=== PATIENT | female | born 1960 | race Caucasian/White ===

== ENCOUNTER 2019-03-25 12:31 | Inpatient (IN) | payer OTHER ==
[2019-03-25 16:01] VITALS: BMI 43.0
--- NOTE | 2019-03-25 16:40 | HP ---
CIWA Score Nausea/Vomitin Muscle Tremors: 3 Anxiety: 2 Agitation: 2 Paroxysmal Sweats: 3 Orientation: 1-Uncertain about Date Tacttile Disturbances: 0-None Auditory Disturbances: 0-None Visual Disturbances: 1-Very Mild Sensitivity Headache: 4-Moderately Severe CIWA-Ar Total Score: 19 - Admission Criteria OASAS Guidelines: Admission for Medically Managed Detox: Requires at least one of the followin. CIWA greater than 12 2. Seizures within the past 24 hours 3. Delirium tremens within the past 24 hours 4. Hallucinations within the past 24 hours 5. Acute intervention needed for co occurring medical disorder 6. Acute intervention needed for co occurring psychiatric disorder 7. Severe withdrawal that cannot be handled at a lower level of care (continued vomiting, continued diarrhea, abnormal vital signs) requiring intravenous medication and/or fluids 8. Patient presents the following: CIWA greater than 12 Admission Criteria Met: Admission criteria met Admission ROS [facility] Chief Complaint: Julieth Simms is a 59 year old female presenting for alcohol and opiate abuse. Allergies/Adverse Reactions: Allergies Allergy/AdvReac Type Severity Reaction Status Date / Time No Known Allergies Allergy Verified 03/25/19 15:48 History of Present Illness: Julieth Simms is a 59 year old female presenting for alcohol and opiate abuse. Alcohol: variable. 1L of hard alcohol or 4 40oz beers. Last drink was today, but minimal. Last large amount of drinking was yesterday. Has been drinking for last 10 days. Prior to that was clean for 2 years. Prior to her sobriety she had variable drinking states over the years. First drink was in her teens. Denies history of seizures. Has had blackout, falls, and head hits. Withdrawal symptoms: nausea, vomiting, tremors, headaches, diarrhea, dizziness. Was recently in intermediate for extended period of time (almost 2 years) due to inability to walk and dangerous living home environment. Had recent planned suicide attempt where she planned to take pills, but called 911 to pick her up. Opiate pills: was prescribed opiates at nursing facility for her degenerative disc disease pain. Was taking scheduled and prn medications at the intermediate. Since exiting the intermediate 10 days had not gotten any opiate pain medications at home until presenting to [facility] where she was given one dose of Percocet. Stated she never before used opiates until before the intermediate. Was given Ativan at [facility]. Referred from [facility]. Has been to detox previously. Most recent detox 5 years prior. Has been to rehab previously, most recently 5 years. Plans after detox: wants to go to rehab. Medical History: degenerative disc disease, scoliosis, spondylosis, GERD Psychiatric History: MDD, bipolar Surgical History: L total hip replacement, L knee surgery Smoking: denies Social: apartment, lives alone. Unemployed. On disability. Has a guardian in a self-help and advocacy agency. Guardian Fredis Canales [employer]OUND[employer] CHAIRMAN AND CHIE[employer] CREATIVE OFFICER Reference: #[id number] Multiple Rx dispensed for Xtampza ER 9mg, pregabalin 100mg, oxycodone 10mg within the last year. Will be admitted for alcohol detox with Librium. Exam Limitations: No Limitations - Ebola screening Have you traveled outside of the country in the last 21 days: No Have you had contact with anyone from an Ebola affected area: No Do you have a fever: No - Review of Systems Constitutional: Chills, Loss of Appetite, Changes in sleep EENT: reports: No Symptoms Reported Respiratory: reports: No Symptoms reported Cardiac: reports: Palpitations GI: reports: Diarrhea, Nausea, Poor Appetite, Vomiting : reports: No Symptoms Reported Musculoskeletal: reports: Back Pain Integumentary: reports: No Symptoms Reported Neuro: reports: Headache Endocrine: reports: No Symptoms Reported Hematology: reports: No Symptoms Reported Psychiatric: reports: Anxious, Depressed Patient History - Patient Medical History Hx Anemia: No Hx Asthma: No Hx Chronic Obstructive Pulmonary Disease (COPD): No Hx Cancer: No Hx Cardiac Disorders: No Hx Congestive Heart Failure: No Hx Hypertension: No Hx Hypercholesterolemia: No Hx Pacemaker: No HX Cerebrovascular Accident: No Hx Seizures: No Hx Dementia: No Hx Diabetes: No Hx Gastrointestinal Disorders: Yes (GERD) Hx Liver Disease: No Hx Genitourinary Disorders: No Hx Sexually Transmitted Disorders: No Hx Renal Disease (ESRD): No Hx Thyroid Disease: No Hx Human Immunodeficiency Virus (HIV): No Hx Hepatitis C: No Hx Depression: Yes Hx Suicide Attempt: Yes (recent) Hx Bipolar Disorder: Yes Hx Schizophrenia: No Other Medical History: degenerative disc disease - Patient Surgical History Hx Neurologic Surgery: No Hx Cataract Extraction: No Hx Cardiac Surgery: No Hx Lung Surgery: No Hx Breast Surgery: No Hx Breast Biopsy: No Hx Abdominal Surgery: No Hx Appendectomy: No Hx Cholecystectomy: No Hx Genitourinary Surgery: No Hx Section: No Hx Orthopedic Surgery: Yes (L hip replacement) - PPD History Previous Implant?: No PPD to be Administered?: Yes - Reproductive History Patient is a Female of Child Bearing Age (11 -55 yrs old): No Patient : No - Smoking Cessation Smoking history: Never smoked - Substance & Tx. History Hx Alcohol Use: Yes Hx Substance Use: Yes Substance Use Type: Alcohol, Opiates - Substances abused Oxycontin Substance route: Oral Frequency: Daily Amount used: 5mg 2x daily Age of first use: 57 Date of last use: 03/16/19 Alcohol Substance route: Oral Frequency: Daily Amount used: 1 liter of vodka Age of first use: 20 Date of last use: 03/24/19 Admission Physical Exam BHS - Vital Signs Vital Signs: Vital Signs - 24 hr 03/25/19 15:48 Temperature 98.6 F Pulse Rate 99 H Respiratory 19 Rate Blood Pressure 153/95 - Physical General Appearance: Yes: Appropriately Dressed, Moderate Distress HEENTM: Yes: EOMI, Normocephalic, Normal Voice, HANNA, Pharynx Normal Respiratory: Yes: Chest Non-Tender, Lungs Clear, Normal Breath Sounds, No Respiratory Distress, No Accessory Muscle Use Neck: Yes: No masses,lesions,Nodules, Trachea in good position Breast: Yes: Breast Exam Deferred Cardiology: Yes: Regular Rhythm, Regular Rate, S1, S2 Abdominal: Yes: Normal Bowel Sounds, Non Tender, Soft, Other (obese abdomen) Genitourinary: Yes: Within Normal Limits Back: Yes: Normal Inspection Musculoskeletal: Yes: Back pain (lower back), Other (post-surgical scar on L hip , hematoma s/p venipuncture on R hand) Extremities: Yes: Normal Capillary Refill, Normal Range of Motion, Non-Tender, Tremors, Pedal Edema (trace edema) Neurological: Yes: production service manager II-XII NML intact, Alert, Motor Strength 5/5 Integumentary: Yes: Normal Color, Dry, Other (cool extremities) - Diagnostic (1) Alcohol abuse Current Visit: Yes Status: Acute (2) GERD (gastroesophageal reflux disease) Current Visit: Yes Status: Acute (3) Spondylosis Current Visit: Yes Status: Acute (4) Degenerative disc disease Current Visit: Yes Status: Acute (5) History of left hip replacement Current Visit: Yes Status: Acute (6) MDD (major depressive disorder) Current Visit: Yes Status: Acute (7) Bipolar disorder Current Visit: Yes Status: Acute (8) Opiate abuse, episodic Current Visit: Yes Status: Acute Cleared for Admission S - Detox or Rehab [facility] Level of Care: Medically Managed Detox Regimen/Protocol: Librium Breathalyzer - Breathalyzer Breathalyzer: 0 Urine Drug Screen - Test Device Lot number: [id number] Expiration date: 11/13/20 - Control Is test valid?: Yes - Results Drug screen NEGATIVE: Yes Urine drug screen results: OXY-Oxycodone, BZO-Benzodiazepines Inpatient Rehab Admission - Rehab Decision to Admit Inpatient rehab admission?: No
[2019-03-25] MEDS ORDERED: IBUPROFEN 400 MG TABLET (FP) PO PRN (17:24)
[2019-03-25] MEDS ORDERED: ACETAMINOPHEN 325 MG TABLET (FP) PO PRN (17:24)
[2019-03-25] MEDS ORDERED: MENTHOL/PHENOL 1 EACH UD MM PRN (17:24)
[2019-03-25] MEDS ORDERED: MAGNESIUM CITRATE 300 ML BOTTLE PO PRN (17:24)
[2019-03-25] MEDS ORDERED: MAG HYDROX/AL HYDROX/SIMETH 30 ML UNIT-DOSE CUP PO PRN (17:24)
[2019-03-25] MEDS ORDERED: MAGNESIUM HYDROX 2400MG/30ML ORAL SUSPENSION 30 ML CUP PO PRN (17:24)
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
[2019-03-25] MEDS: chlordiazePOXIDE HCL 25 MG CAPSULE PO PRN (19:29)
[2019-03-25] MEDS: hydrOXYzine PAMOATE 25 MG CAPSULE (FP) PO PRN (19:33)
[2019-03-25] MEDS: METHOCARBAMOL 500 MG TABLET PO PRN (19:33)
[2019-03-25] MEDS: chlordiazePOXIDE HCL 25 MG CAPSULE PO SCH (22:22)
[2019-03-25] MEDS: MELATONIN 5 MG TABLETS PO PRN (22:23)
[2019-03-25] MEDS: THIAMINE HCL 100 MG TABLET (FP) PO SCH (22:23)
[2019-03-26] MEDS: chlordiazePOXIDE HCL 25 MG CAPSULE PO PRN ×2 (01:34→15:11)
[2019-03-26] MEDS: ACETAMINOPHEN 325 MG TABLET (FP) PO PRN ×2 (01:35→15:13)
[2019-03-26] MEDS: chlordiazePOXIDE HCL 25 MG CAPSULE PO SCH ×4 (05:35→22:04)
[2019-03-26] MEDS: hydrOXYzine PAMOATE 25 MG CAPSULE (FP) PO PRN (05:35)
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
[2019-03-26] MEDS ORDERED: IBUPROFEN 400 MG TABLET (FP) PO PRN (08:32)
[2019-03-26] MEDS: PANTOPRAZOLE 20 MG TABLET (FP) PO SCH (09:16)
[2019-03-26] MEDS: PRENATAL VITAMINS W/ FOLIC ACID TABLET (FP) PO SCH (09:16)
[2019-03-26] MEDS: METHOCARBAMOL 500 MG TABLET PO PRN ×2 (09:16→16:53)
[2019-03-26] MEDS: LIDOCAINE 5% TOPICAL PATCH TP SCH (11:24)
[2019-03-26] MEDS: hydrOXYzine PAMOATE 50 MG CAPSULE (FP) PO PRN ×2 (11:36→18:52)
[2019-03-26] MEDS ORDERED: COLLOIDAL OATMEAL 1 BAR EACH TP ONE (13:50)
--- NOTE | 2019-03-26 13:53 | PN ---
S CIWA - CIWA Score Nausea/Vomitin-No Nausea/No Vomiting Muscle Tremors: 3 Anxiety: 3 Agitation: 4-Moderately Restless Paroxysmal Sweats: 3 Orientation: 0-Oriented Tacttile Disturbances: 0-None Auditory Disturbances: 0-None Visual Disturbances: 0-None Headache: 0-None Present CIWA-Ar Total Score: 13 B[facility] Progress Note (SOAP) Subjective: sweats anxiety body aches interrupted sleep rash to my buttock area Objective: 03/26/19 13:52 Vital Signs Temperature 98.2 F 03/26/19 13:29 Pulse Rate 96 H 03/26/19 13:29 Respiratory Rate 18 03/26/19 13:29 Blood Pressure 145/81 03/26/19 13:29 O2 Sat by Pulse Oximetry (%) labs pending aaox3 ambulating no acute distress Assessment: 03/26/19 13:52 withdrawal sx Plan: continue detox increase fluids nystatin cream ordered aveeno soap lidocaine patch motrin 800mg tid prn
[2019-03-26] MEDS: BISMUTH SUBSALICYLATE 524 MG/30 ML UD PO PRN ×2 (15:12→16:56)
[2019-03-26] MEDS: NYSTATIN 100,000 UNIT/GM TOPICAL CREAM 15 GM TUBE TP SCH (19:35)
[2019-03-26] MEDS: IBUPROFEN 400 MG TABLET (FP) PO PRN ×2 (20:27→22:04)
[2019-03-26] MEDS: traZODone HCL 100 MG TABLET (FP) PO SCH (22:04)
[2019-03-26] MEDS: THIAMINE HCL 100 MG TABLET (FP) PO SCH (22:05)
[2019-03-26] MEDS: MELATONIN 5 MG TABLETS PO PRN (22:06)
[2019-03-26] MEDS: LIDOCAINE PATCH REMOVAL MC SCH (22:08)
[2019-03-27] MEDS: NYSTATIN 100,000 UNIT/GM TOPICAL CREAM 15 GM TUBE TP SCH ×5 (00:05→17:52)
[2019-03-27] MEDS: chlordiazePOXIDE HCL 25 MG CAPSULE PO SCH ×4 (05:43→22:05)
[2019-03-27] MEDS: METHOCARBAMOL 500 MG TABLET PO PRN ×3 (05:45→22:08)
[2019-03-27] MEDS: IBUPROFEN 400 MG TABLET (FP) PO PRN ×2 (05:45→13:42)
[2019-03-27] MEDS: hydrOXYzine PAMOATE 50 MG CAPSULE (FP) PO PRN ×2 (05:45→10:09)
[2019-03-27] MEDS: ACETAMINOPHEN 325 MG TABLET (FP) PO PRN ×2 (09:20→15:20)
[2019-03-27] MEDS ORDERED: cloNIDine HCL 0.1 MG TABLET PO SCH (10:00)
[2019-03-27] MEDS: PRENATAL VITAMINS W/ FOLIC ACID TABLET (FP) PO SCH (10:06)
[2019-03-27] MEDS: LIDOCAINE 5% TOPICAL PATCH TP SCH (10:06)
[2019-03-27] MEDS: PANTOPRAZOLE 20 MG TABLET (FP) PO SCH (10:06)
--- NOTE | 2019-03-27 13:32 | PN ---
[facility] CIWA - CIWA Score Nausea/Vomitin-No Nausea/No Vomiting Muscle Tremors: 3 Anxiety: 3 Agitation: 4-Moderately Restless Paroxysmal Sweats: 3 Orientation: 0-Oriented Tacttile Disturbances: 0-None Auditory Disturbances: 0-None Visual Disturbances: 0-None Headache: 0-None Present CIWA-Ar Total Score: 13 BHS Progress Note (SOAP) Subjective: agitation sweats the meals I receive are too high in sugars. I am try to lose weight body aches Objective: 03/27/19 13:32 Vital Signs Temperature 98.8 F 03/27/19 09:28 Pulse Rate 94 H 03/27/19 09:28 Respiratory Rate 18 03/27/19 09:28 Blood Pressure 160/81 03/27/19 09:28 O2 Sat by Pulse Oximetry (%) re-ordered labs aaox3 ambulating no acute distress Assessment: 03/27/19 13:33 withdrawal sx Plan: continue detox d/c reg diet; ordered a low sodium and low sugar diet; pt in agreement clonidine 0.1mg daily with parameters.
[2019-03-27] MEDS: chlordiazePOXIDE HCL 25 MG CAPSULE PO PRN (13:46)
[2019-03-27] MEDS: traZODone HCL 100 MG TABLET (FP) PO SCH (22:05)
[2019-03-27] MEDS: THIAMINE HCL 100 MG TABLET (FP) PO SCH (22:05)
[2019-03-27] MEDS: MELATONIN 5 MG TABLETS PO PRN (22:06)
[2019-03-27] MEDS: LIDOCAINE PATCH REMOVAL MC SCH (22:06)
[2019-03-28] MEDS: NYSTATIN 100,000 UNIT/GM TOPICAL CREAM 15 GM TUBE TP SCH ×4 (00:19→18:37)
[2019-03-28] MEDS: hydrOXYzine PAMOATE 50 MG CAPSULE (FP) PO PRN ×3 (00:40→16:04)
[2019-03-28] MEDS: IBUPROFEN 400 MG TABLET (FP) PO PRN ×3 (00:40→17:53)
[2019-03-28] MEDS: chlordiazePOXIDE HCL 10 MG CAPSULE PO SCH ×4 (05:56→22:00)
[2019-03-28] MEDS: METHOCARBAMOL 500 MG TABLET PO PRN ×3 (06:01→17:52)
[2019-03-28] MEDS: ACETAMINOPHEN 325 MG TABLET (FP) PO PRN ×3 (06:01→22:03)
[2019-03-28] MEDS: LIDOCAINE 5% TOPICAL PATCH TP SCH (10:08)
[2019-03-28] MEDS: PRENATAL VITAMINS W/ FOLIC ACID TABLET (FP) PO SCH (10:08)
[2019-03-28] MEDS: cloNIDine HCL 0.1 MG TABLET PO SCH (10:08)
[2019-03-28] MEDS: PANTOPRAZOLE 20 MG TABLET (FP) PO SCH (10:08)
[2019-03-28 10:23] LABS: BASO % 0.3 % (0-2.0); HEMOGLOBIN 13.6 GM/dL (10.7-15.3); LYMPH % 39.9 % (8-40); MCH 31.7 pg (25.7-33.7); MCHC 34.1 g/dl (32.0-36.0); MEAN CELL VOLUME 93.1 fl (80-96); MEAN PLT VOLUME 9.6 fl (7.5-11.1); MONO % 6.2 % (3.8-10.2); NEUT % 51.6 % (42.8-82.8); PLATELET COUNT 120 K/MM3 (134-434); RBC 4.29 M/mm3 (3.60-5.2); RDW 13.2 % (11.6-15.6); WHITE BLOOD COUNT 6.8 K/mm3 (4.0-10.0)
[2019-03-28 10:30] LABS: ALBUMIN 3.4 g/dl (3.4-5.0); BILIRUBIN,TOTAL 0.6 mg/dL (0.2-1); CALCIUM 8.7 mg/dL (8.5-10.1); POTASSIUM 4.1 mmol/L (3.5-5.1); TOT PROT 6.5 g/dl (6.4-8.2)
[2019-03-28] MEDS: chlordiazePOXIDE HCL 10 MG CAPSULE PO PRN ×2 (12:02→19:01)
--- NOTE | 2019-03-28 16:53 | PN ---
[facility] CIWA - CIWA Score Nausea/Vomitin-No Nausea/No Vomiting Muscle Tremors: 2 Anxiety: 4-Mod. Anxious/Guarded Agitation: 2 Paroxysmal Sweats: 3 Orientation: 0-Oriented Tacttile Disturbances: 0-None Auditory Disturbances: 0-None Visual Disturbances: 0-None Headache: 0-None Present CIWA-Ar Total Score: 11 S Progress Note (SOAP) Subjective: Sweating, Anxiety and Chronic generalized pain (patient stated that she has been on oxycodone and oxycontin for past 2 years and is not getting it here and needs her pain to be controlled). Patient willing to take prn medication to help control her anxiety and pain. Objective: 03/28/19 16:53 Last Vital Signs Temp Pulse Resp BP Pulse Ox 97.0 F L 66 18 129/76 03/28/19 13:27 03/28/19 13:27 03/28/19 13:27 03/28/19 13:27 Laboratory Tests 03/28/19 03/28/19 03/28/19 07:15 07:15 07:15 WBC 6.8 RBC 4.29 Hgb 13.6 Hct 40.0 MCV 93.1 MCH 31.7 MCHC 34.1 RDW 13.2 Plt Count 120 L MPV 9.6 Absolute Neuts (auto) 3.5 Neutrophils % 51.6 Lymphocytes % 39.9 Monocytes % 6.2 Eosinophils % 2.0 Basophils % 0.3 Nucleated RBC % 0 Sodium 141 Potassium 4.1 Chloride 110 H Carbon Dioxide 23 Anion Gap 8 BUN 21.0 H Creatinine 1.0 Est GFR (CKD-EPI)AfAm 72.42 Est GFR (CKD-EPI)NonAf 62.49 Random Glucose 145 H Calcium 8.7 Total Bilirubin 0.6 AST 12 L ALT 28 Alkaline Phosphatase 82 Total Protein 6.5 Albumin 3.4 RPR Titer Nonreactive Labs reviewed: plt 120 (low), bun 21 (high), glucose 145 (high) Assessment: 03/28/19 16:56 Withdrawal sxs Noted with thrombocytopenia, azotemia and hyperglycemia Plan: Continue detox Encouraged PO water intake Thrombocytopenia: most likely due to substance use, educated on avoiding Rx opioids and all illicit drugs/alcohol due to health related risks, follow up with PCP for monitoring Azotemia: encouraged PO water intake Hyperglycemia: denies dm, repeat fasting glucose and HbA1c
[2019-03-28] MEDS: THIAMINE HCL 100 MG TABLET (FP) PO SCH (21:59)
[2019-03-28] MEDS: traZODone HCL 100 MG TABLET (FP) PO SCH (22:00)
[2019-03-28] MEDS: LIDOCAINE PATCH REMOVAL MC SCH (22:00)
[2019-03-29] MEDS: NYSTATIN 100,000 UNIT/GM TOPICAL CREAM 15 GM TUBE TP SCH ×4 (00:19→22:10)
[2019-03-29] MEDS: hydrOXYzine PAMOATE 50 MG CAPSULE (FP) PO PRN ×5 (00:59→22:09)
[2019-03-29] MEDS: IBUPROFEN 400 MG TABLET (FP) PO PRN ×2 (03:19→10:12)
[2019-03-29] MEDS: METHOCARBAMOL 500 MG TABLET PO PRN ×3 (03:49→19:20)
[2019-03-29] MEDS: chlordiazePOXIDE HCL 10 MG CAPSULE PO SCH ×2 (05:42→17:25)
[2019-03-29] MEDS: ACETAMINOPHEN 325 MG TABLET (FP) PO PRN ×3 (05:43→22:10)
[2019-03-29] MEDS: PRENATAL VITAMINS W/ FOLIC ACID TABLET (FP) PO SCH (10:08)
[2019-03-29] MEDS: cloNIDine HCL 0.1 MG TABLET PO SCH (10:08)
[2019-03-29] MEDS: LIDOCAINE 5% TOPICAL PATCH TP SCH (10:08)
[2019-03-29] MEDS: PANTOPRAZOLE 20 MG TABLET (FP) PO SCH (10:08)
[2019-03-29] MEDS: chlordiazePOXIDE HCL 25 MG CAPSULE PO PRN ×2 (10:13→19:20)
--- NOTE | 2019-03-29 13:59 | PN ---
S CIWA - CIWA Score Nausea/Vomitin-No Nausea/No Vomiting Muscle Tremors: 3 Anxiety: 2 Agitation: 3 Paroxysmal Sweats: No Perspiration Orientation: 0-Oriented Tacttile Disturbances: 0-None Auditory Disturbances: 0-None Visual Disturbances: 0-None Headache: 0-None Present CIWA-Ar Total Score: 8 BHS Progress Note (SOAP) Subjective: chronic back pain anxiety sweats Objective: 03/29/19 13:58 Vital Signs Temperature 98.4 F 03/29/19 13:10 Pulse Rate 71 03/29/19 13:10 Respiratory Rate 18 03/29/19 13:10 Blood Pressure 119/65 03/29/19 13:10 O2 Sat by Pulse Oximetry (%) aaox3 ambulating with walker no acute distress Assessment: 03/29/19 13:58 withdrawals sx Plan: continue detox increase fluids motrin 600mg q6hr prn roboxin 500 q6hrs lidocaine patch librium 25mg prn x 1 day. d/c in am
[2019-03-29] MEDS: IBUPROFEN 600 MG TABLET (FP) PO PRN (17:25)
[2019-03-29] MEDS: THIAMINE HCL 100 MG TABLET (FP) PO SCH (22:09)
[2019-03-29] MEDS: traZODone HCL 100 MG TABLET (FP) PO SCH (22:09)
[2019-03-30] MEDS: LIDOCAINE PATCH REMOVAL MC SCH (00:11)
[2019-03-30] MEDS: METHOCARBAMOL 500 MG TABLET PO PRN ×2 (04:48→10:16)
[2019-03-30] MEDS: IBUPROFEN 600 MG TABLET (FP) PO PRN ×2 (04:48→10:16)
[2019-03-30] MEDS: hydrOXYzine PAMOATE 50 MG CAPSULE (FP) PO PRN (04:48)
[2019-03-30] MEDS ORDERED: chlordiazePOXIDE HCL 10 MG CAPSULE PO ONE (05:00)
[2019-03-30] MEDS: NYSTATIN 100,000 UNIT/GM TOPICAL CREAM 15 GM TUBE TP SCH ×3 (06:34→11:20)
--- NOTE | 2019-03-30 09:34 | DS ---
[facility] Detox Discharge Summary Admission Date: 03/25/19 Discharge Date: 03/30/19 - History Present History: Alcohol Dependence - Physical Exam Results Vital Signs: Vital Signs Temperature 97.9 F 03/30/19 09:27 Pulse Rate 70 03/30/19 09:27 Respiratory Rate 18 03/30/19 09:27 Blood Pressure 127/76 03/30/19 09:27 O2 Sat by Pulse Oximetry (%) Pertinent Admission Physical Exam Findings: pt arrived in withdrawals Vital Signs Temperature 97.9 F 03/30/19 09:27 Pulse Rate 70 03/30/19 09:27 Respiratory Rate 18 03/30/19 09:27 Blood Pressure 127/76 03/30/19 09:27 O2 Sat by Pulse Oximetry (%) Laboratory Tests 03/28/19 03/28/19 03/28/19 07:15 07:15 07:15 WBC 6.8 RBC 4.29 Hgb 13.6 Hct 40.0 MCV 93.1 MCH 31.7 MCHC 34.1 RDW 13.2 Plt Count 120 L MPV 9.6 Absolute Neuts (auto) 3.5 Neutrophils % 51.6 Lymphocytes % 39.9 Monocytes % 6.2 Eosinophils % 2.0 Basophils % 0.3 Nucleated RBC % 0 Sodium 141 Potassium 4.1 Chloride 110 H Carbon Dioxide 23 Anion Gap 8 BUN 21.0 H Creatinine 1.0 Est GFR (CKD-EPI)AfAm 72.42 Est GFR (CKD-EPI)NonAf 62.49 Random Glucose 145 H Fasting Glucose Hemoglobin A1c % Calcium 8.7 Total Bilirubin 0.6 AST 12 L ALT 28 Alkaline Phosphatase 82 Total Protein 6.5 Albumin 3.4 RPR Titer Nonreactive 03/29/19 03/29/19 08:00 08:00 WBC RBC Hgb Hct MCV MCH MCHC RDW Plt Count MPV Absolute Neuts (auto) Neutrophils % Lymphocytes % Monocytes % Eosinophils % Basophils % Nucleated RBC % Sodium Potassium Chloride Carbon Dioxide Anion Gap BUN Creatinine Est GFR (CKD-EPI)AfAm Est GFR (CKD-EPI)NonAf Random Glucose Fasting Glucose 117 H Hemoglobin A1c % 5.5 Calcium Total Bilirubin AST ALT Alkaline Phosphatase Total Protein Albumin RPR Titer pt is aaox3 ambulating no acute distress no s/s of withdrawals - Treatment Hospital Course: Detox Protocol Followed, Detoxed Safely, Responded well, Discharged Condition Good, Rehab Referral Accepted Patient has Accepted a Rehab Referral to: referral to inpatient rehab - Medication Discharge Medications: Ambulatory Orders Diphenhydramine HCl [Diphenhist] 25 mg PO DAILY 03/25/19 Escitalopram Oxalate [Lexapro -] 20 mg PO DAILY 03/25/19 Folic Acid 1 mg PO DAILY 03/25/19 Gabapentin [Gralise] 1 each PO DAILY 03/25/19 Naproxen [Naprosyn -] 375 mg PO BID 03/25/19 Pantoprazole Sodium [Protonix -] 20 mg PO DAILY 03/25/19 - Diagnosis (1) Alcohol dependence, uncomplicated Current Visit: Yes Status: Chronic (2) Bipolar disorder Current Visit: Yes Status: Acute (3) MDD (major depressive disorder) Current Visit: Yes Status: Acute (4) Opiate abuse, episodic Current Visit: Yes Status: Acute (5) Substance induced mood disorder Current Visit: Yes Status: Acute (6) Substance-induced anxiety disorder Current Visit: Yes Status: Acute (7) Substance-induced sleep disorder Current Visit: Yes Status: Acute (8) Degenerative disc disease Current Visit: Yes Status: Chronic (9) GERD (gastroesophageal reflux disease) Current Visit: Yes Status: Chronic Qualifiers: Esophagitis presence: without esophagitis Qualified Code(s): K21.9 - Gastro -esophageal reflux disease without esophagitis (10) Spondylosis Current Visit: Yes Status: Chronic (11) History of left hip replacement Current Visit: No Status: Resolved (12) MDD (major depressive disorder) Current Visit: Yes Status: Ruled-out - AMA Did Patient Leave Against Medical Advice: No
[2019-03-30] MEDS: cloNIDine HCL 0.1 MG TABLET PO SCH (10:14)
[2019-03-30] MEDS: PRENATAL VITAMINS W/ FOLIC ACID TABLET (FP) PO SCH (10:14)
[2019-03-30] MEDS: PANTOPRAZOLE 20 MG TABLET (FP) PO SCH (10:14)
[2019-03-30] MEDS: LIDOCAINE 5% TOPICAL PATCH TP SCH (10:14)
[2019-03-30 13:18] VITALS: BP 129/70; PULSE 66; TEMP 97.5
== END 2019-03-30 15:25 | disposition home or self-care (01) | DRG 897 ==
LOC: YASAS 12:31 → Y6N 18:59
PROVIDERS: ADMIT Allergy & Immunology; ATTEND Allergy & Immunology
PROC: HZ2ZZZZ Detoxification Services for Substance Abuse Treatment (ICD-10-PCS; principal; 2019-03-25)
DX: F10.230 Alcohol dependence with withdrawal, uncomplicated (principal); F11.20 Opioid dependence, uncomplicated; F19.280 Other psychoactive substance dependence with psychoactive substance-induced anxiety disorder; F19.282 Other psychoactive substance dependence with psychoactive substance-induced sleep disorder; F19.24 Other psychoactive substance dependence with psychoactive substance-induced mood disorder; F32.9 Major depressive disorder, single episode, unspecified; F31.9 Bipolar disorder, unspecified; K21.9 Gastro-esophageal reflux disease without esophagitis; M47.9 Spondylosis, unspecified; D69.6 Thrombocytopenia, unspecified; R73.9 Hyperglycemia, unspecified; R79.89 Other specified abnormal findings of blood chemistry; Z96.642 Presence of left artificial hip joint; Z91.5 Personal history of self-harm
CPT/HCPCS: 36415; 80053; 82947; 83036; 85025; 86593; J0735

== ENCOUNTER 2019-05-11 11:48 | Inpatient (IN) | payer OTHER ==
[2019-05-11 12:55] VITALS: BMI 40.1
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
[2019-05-11] MEDS ORDERED: ACETAMINOPHEN 325 MG TABLET (FP) PO PRN (14:28)
[2019-05-11] MEDS ORDERED: ONDANSETRON *ODT* 4 MG TABLET SL PRN (14:28)
[2019-05-11] MEDS ORDERED: MAG HYDROX/AL HYDROX/SIMETH 30 ML UNIT-DOSE CUP PO PRN (14:28)
[2019-05-11] MEDS ORDERED: MENTHOL/PHENOL 1 EACH UD MM PRN (14:28)
[2019-05-11] MEDS ORDERED: MELATONIN 5 MG TABLETS PO PRN (14:28)
[2019-05-11] MEDS ORDERED: MAGNESIUM CITRATE 300 ML BOTTLE PO PRN (14:28)
[2019-05-11] MEDS ORDERED: chlordiazePOXIDE HCL 25 MG CAPSULE PO PRN (14:37)
[2019-05-11] MEDS ORDERED: chlordiazePOXIDE HCL 25 MG CAPSULE PO ONE (15:30)
[2019-05-11] MEDS: IBUPROFEN 400 MG TABLET (FP) PO PRN (15:51)
[2019-05-11] MEDS: chlordiazePOXIDE HCL 25 MG CAPSULE PO SCH ×2 (17:44→22:34)
[2019-05-11] MEDS: ACETAMINOPHEN 325 MG TABLET (FP) PO PRN (20:38)
[2019-05-11] MEDS: THIAMINE HCL 100 MG TABLET (FP) PO SCH (22:34)
[2019-05-11] MEDS: CLOTRIMAZOLE 1% CREAM 15 GM TUBE TP SCH (22:34)
[2019-05-12] MEDS: METHOCARBAMOL 500 MG TABLET PO PRN ×3 (03:28→19:50)
[2019-05-12] MEDS: IBUPROFEN 400 MG TABLET (FP) PO PRN ×2 (03:29→14:57)
[2019-05-12] MEDS: BISMUTH SUBSALICYLATE 262 MG/15 ML BTL PO PRN ×3 (03:32→15:00)
[2019-05-12] MEDS: chlordiazePOXIDE HCL 25 MG CAPSULE PO SCH ×4 (05:43→22:17)
--- NOTE | 2019-05-12 09:41 | PN ---
S CIWA - CIWA Score Nausea/Vomitin-No Nausea/No Vomiting Muscle Tremors: 3 Anxiety: 3 Agitation: 3 Paroxysmal Sweats: 3 Orientation: 0-Oriented Tacttile Disturbances: 0-None Auditory Disturbances: 0-None Visual Disturbances: 0-None Headache: 0-None Present CIWA-Ar Total Score: 12 S Progress Note (SOAP) Subjective: sweats shakes low back pain interrupted sleep nausea Objective: 05/12/19 09:40 Vital Signs Temperature 97.7 F 05/12/19 07:11 Pulse Rate 91 H 05/12/19 07:11 Respiratory Rate 16 05/12/19 07:11 Blood Pressure 134/70 05/12/19 07:11 O2 Sat by Pulse Oximetry (%) pending labs aaox3 ambulating with rollator no acute distress Assessment: 05/12/19 09:41 withdrawals Plan: continue detox increase fluids lidoderm patch motrin 800mg tid prn tylenol prn roboxin prn
[2019-05-12 10:23] LABS: ALBUMIN 3.8 g/dl (3.4-5.0); BILIRUBIN,TOTAL 1.6 mg/dL (0.2-1); BLOOD UREA NITROGEN 16.9 mg/dL (7-18); CALCIUM 8.9 mg/dL (8.5-10.1); POTASSIUM 3.3 mmol/L (3.5-5.1); TOT PROT 7.2 g/dl (6.4-8.2)
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
[2019-05-12 10:39] LABS: HEMATOCRIT 42.3 % (32.4-45.2); HEMOGLOBIN 14.6 GM/dL (10.7-15.3); MCH 32.1 pg (25.7-33.7); MCHC 34.4 g/dl (32.0-36.0); MEAN CELL VOLUME 93.3 fl (80-96); MEAN PLT VOLUME 8.5 fl (7.5-11.1); PLATELET COUNT 166 K/MM3 (134-434); RBC 4.54 M/mm3 (3.60-5.2); RDW 14.4 % (11.6-15.6)
[2019-05-12] MEDS: PRENATAL VITAMINS W/ FOLIC ACID TABLET (FP) PO SCH (10:43)
[2019-05-12] MEDS: CLOTRIMAZOLE 1% CREAM 15 GM TUBE TP SCH ×2 (10:44→22:18)
[2019-05-12] MEDS: PANTOPRAZOLE 40 MG TABLET (FP) PO SCH (10:44)
[2019-05-12] MEDS ORDERED: LIDOCAINE 5% TOPICAL PATCH TP ONE (12:22)
[2019-05-12] MEDS: POTASSIUM CHLORIDE TABS 20 MEQ TABLET.ER (FP) PO SCH (12:50)
[2019-05-12] MEDS: PETROLATUM, WHITE 30 GM TUBE TP SCH (12:51)
[2019-05-12] MEDS: ACETAMINOPHEN 325 MG TABLET (FP) PO PRN (19:50)
[2019-05-12] MEDS: THIAMINE HCL 100 MG TABLET (FP) PO SCH (22:18)
[2019-05-12] MEDS: traZODone HCL 100 MG TABLET (FP) PO SCH (22:18)
[2019-05-12] MEDS: LIDOCAINE PATCH REMOVAL MC SCH (22:18)
[2019-05-12] MEDS: SUVOREXANT 10 MG TABLET PO PRN (22:18)
[2019-05-13] MEDS: hydrOXYzine PAMOATE 25 MG CAPSULE (FP) PO PRN ×2 (01:08→18:57)
[2019-05-13] MEDS: chlordiazePOXIDE HCL 25 MG CAPSULE PO SCH ×4 (05:36→22:04)
[2019-05-13] MEDS: METHOCARBAMOL 500 MG TABLET PO PRN ×2 (05:37→18:57)
[2019-05-13] MEDS: IBUPROFEN 400 MG TABLET (FP) PO PRN ×2 (08:58→18:57)
[2019-05-13] MEDS: POTASSIUM CHLORIDE TABS 20 MEQ TABLET.ER (FP) PO SCH (10:22)
[2019-05-13] MEDS: PANTOPRAZOLE 40 MG TABLET (FP) PO SCH (10:22)
[2019-05-13] MEDS: PRENATAL VITAMINS W/ FOLIC ACID TABLET (FP) PO SCH (10:22)
[2019-05-13] MEDS: LIDOCAINE 5% TOPICAL PATCH TP SCH (10:23)
[2019-05-13] MEDS: CLOTRIMAZOLE 1% CREAM 15 GM TUBE TP SCH ×2 (10:23→21:45)
--- NOTE | 2019-05-13 11:26 | PN ---
S CIWA - CIWA Score Nausea/Vomitin-No Nausea/No Vomiting Muscle Tremors: 3 Anxiety: 2 Agitation: 3 Paroxysmal Sweats: 2 Orientation: 0-Oriented Tacttile Disturbances: 0-None Auditory Disturbances: 0-None Visual Disturbances: 0-None Headache: 0-None Present CIWA-Ar Total Score: 10 S Progress Note (SOAP) Subjective: sweats body aches interrupted sleep I want my lotrimin cream for 7am and 7pm. Objective: 05/13/19 11:17 Vital Signs Temperature 97.7 F 05/13/19 10:51 Pulse Rate 94 H 05/13/19 10:51 Respiratory Rate 18 05/13/19 10:51 Blood Pressure 137/89 05/13/19 10:51 O2 Sat by Pulse Oximetry (%) Laboratory Tests 05/12/19 05/12/19 05/12/19 07:00 07:00 07:00 WBC 4.0 RBC 4.54 Hgb 14.6 Hct 42.3 MCV 93.3 MCH 32.1 MCHC 34.4 RDW 14.4 Plt Count 166 D MPV 8.5 D Sodium 137 Potassium 3.3 L Chloride 105 Carbon Dioxide 23 Anion Gap 10 BUN 16.9 Creatinine 1.0 Est GFR (CKD-EPI)AfAm 72.42 Est GFR (CKD-EPI)NonAf 62.49 Random Glucose 137 H Calcium 8.9 Total Bilirubin 1.6 H AST 29 ALT 32 Alkaline Phosphatase 84 Total Protein 7.2 Albumin 3.8 RPR Titer Nonreactive labs noted aaox3 ambulating no acute distress Assessment: 05/13/19 11:19 withdrawals Plan: continue detox hours for her cream changed as per pt request.
[2019-05-13] MEDS: THIAMINE HCL 100 MG TABLET (FP) PO SCH (21:45)
[2019-05-13] MEDS: traZODone HCL 100 MG TABLET (FP) PO SCH (21:45)
[2019-05-13] MEDS: ACETAMINOPHEN 325 MG TABLET (FP) PO PRN (21:48)
[2019-05-13] MEDS: LIDOCAINE PATCH REMOVAL MC SCH (22:04)
[2019-05-14] MEDS: METHOCARBAMOL 500 MG TABLET PO PRN ×4 (02:49→22:45)
[2019-05-14] MEDS: chlordiazePOXIDE HCL 10 MG CAPSULE PO PRN ×2 (02:49→09:17)
[2019-05-14] MEDS: IBUPROFEN 400 MG TABLET (FP) PO PRN ×3 (02:49→19:57)
[2019-05-14] MEDS: ACETAMINOPHEN 325 MG TABLET (FP) PO PRN ×2 (05:30→14:49)
[2019-05-14] MEDS: chlordiazePOXIDE HCL 10 MG CAPSULE PO SCH ×4 (05:31→22:04)
[2019-05-14] MEDS: hydrOXYzine PAMOATE 25 MG CAPSULE (FP) PO PRN ×3 (05:31→21:01)
[2019-05-14] MEDS: PRENATAL VITAMINS W/ FOLIC ACID TABLET (FP) PO SCH (09:12)
[2019-05-14] MEDS: POTASSIUM CHLORIDE TABS 20 MEQ TABLET.ER (FP) PO SCH (09:12)
[2019-05-14] MEDS: PANTOPRAZOLE 40 MG TABLET (FP) PO SCH (09:12)
[2019-05-14] MEDS: CLOTRIMAZOLE 1% CREAM 15 GM TUBE TP SCH ×2 (09:13→19:55)
[2019-05-14] MEDS: LIDOCAINE 5% TOPICAL PATCH TP SCH (09:13)
[2019-05-14] MEDS: PETROLATUM, WHITE 30 GM TUBE TP SCH (10:26)
--- NOTE | 2019-05-14 11:44 | PN ---
S CIWA - CIWA Score Nausea/Vomitin-No Nausea/No Vomiting Muscle Tremors: 3 Anxiety: 2 Agitation: 2 Paroxysmal Sweats: 2 Orientation: 0-Oriented Tacttile Disturbances: 0-None Auditory Disturbances: 0-None Visual Disturbances: 0-None Headache: 0-None Present CIWA-Ar Total Score: 9 BHS Progress Note (SOAP) Subjective: sweats chills agitation Objective: 05/14/19 11:44 Vital Signs Temperature 98.1 F 05/14/19 10:00 Pulse Rate 75 05/14/19 10:00 Respiratory Rate 18 05/14/19 10:00 Blood Pressure 119/64 05/14/19 10:00 O2 Sat by Pulse Oximetry (%) aaox3 ambulating no acute distress Assessment: 05/14/19 11:44 withdrawals Plan: continue detox increase fluids
[2019-05-14] MEDS: BISMUTH SUBSALICYLATE 262 MG/15 ML BTL PO PRN (12:06)
[2019-05-14] MEDS: MAGNESIUM HYDROX 2400MG/30ML ORAL SUSPENSION 30 ML CUP PO PRN (19:54)
[2019-05-14] MEDS: traZODone HCL 100 MG TABLET (FP) PO SCH (21:00)
[2019-05-14] MEDS: THIAMINE HCL 100 MG TABLET (FP) PO SCH (21:00)
[2019-05-14] MEDS: LIDOCAINE PATCH REMOVAL MC SCH (22:04)
[2019-05-15] MEDS: MAGNESIUM HYDROX 2400MG/30ML ORAL SUSPENSION 30 ML CUP PO PRN (02:26)
[2019-05-15] MEDS: ACETAMINOPHEN 325 MG TABLET (FP) PO PRN ×3 (02:30→22:36)
[2019-05-15] MEDS: chlordiazePOXIDE HCL 10 MG CAPSULE PO SCH ×2 (05:40→18:06)
[2019-05-15] MEDS: METHOCARBAMOL 500 MG TABLET PO PRN ×3 (05:41→16:48)
[2019-05-15] MEDS: CLOTRIMAZOLE 1% CREAM 15 GM TUBE TP SCH ×2 (07:52→18:15)
[2019-05-15] MEDS: LIDOCAINE 5% TOPICAL PATCH TP SCH (10:10)
[2019-05-15] MEDS: hydrOXYzine PAMOATE 25 MG CAPSULE (FP) PO PRN ×2 (10:11→22:35)
[2019-05-15] MEDS: IBUPROFEN 400 MG TABLET (FP) PO PRN ×2 (10:11→18:13)
[2019-05-15] MEDS: POTASSIUM CHLORIDE TABS 20 MEQ TABLET.ER (FP) PO SCH (10:11)
[2019-05-15] MEDS: PANTOPRAZOLE 40 MG TABLET (FP) PO SCH (10:11)
[2019-05-15] MEDS: PRENATAL VITAMINS W/ FOLIC ACID TABLET (FP) PO SCH (10:12)
[2019-05-15] MEDS: PETROLATUM, WHITE 30 GM TUBE TP SCH (10:14)
--- NOTE | 2019-05-15 14:45 | PN ---
S CIWA - CIWA Score Nausea/Vomitin-Mild Nausea/No Vomiting Muscle Tremors: 2 Anxiety: 1-Mildly Anxious Agitation: 2 Paroxysmal Sweats: 2 Orientation: 0-Oriented Tacttile Disturbances: 0-None Auditory Disturbances: 0-None Visual Disturbances: 0-None Headache: 0-None Present CIWA-Ar Total Score: 8 B[facility] Progress Note (SOAP) Subjective: pt here for alcohol detox O: Vital Signs - 24 hr 05/14/19 05/14/19 05/15/19 17:02 20:45 00:30 Temperature 97.5 F L 97.9 F Pulse Rate 80 81 Respiratory 20 18 18 Rate Blood Pressure 130/75 146/78 05/15/19 05/15/19 05/15/19 06:00 10:02 13:43 Temperature 97.3 F L 97.3 F L 97.7 F Pulse Rate 70 76 77 Respiratory 18 18 18 Rate Blood Pressure 134/74 139/74 129/75 Laboratory Tests 05/12/19 05/12/19 05/12/19 07:00 07:00 07:00 WBC 4.0 RBC 4.54 Hgb 14.6 Hct 42.3 MCV 93.3 MCH 32.1 MCHC 34.4 RDW 14.4 Plt Count 166 D MPV 8.5 D Sodium 137 Potassium 3.3 L Chloride 105 Carbon Dioxide 23 Anion Gap 10 BUN 16.9 Creatinine 1.0 Est GFR (CKD-EPI)AfAm 72.42 Est GFR (CKD-EPI)NonAf 62.49 Random Glucose 137 H Calcium 8.9 Total Bilirubin 1.6 H AST 29 ALT 32 Alkaline Phosphatase 84 Total Protein 7.2 Albumin 3.8 RPR Titer Nonreactive a/p: AUD- pt completing detox protocol discharge tomorrow- f/u at [facility] and PCP.Pt requested Motrin/robaxin for back pain- prescriptions ordered
[2019-05-15] MEDS: SUVOREXANT 10 MG TABLET PO PRN (21:47)
[2019-05-15] MEDS: traZODone HCL 100 MG TABLET (FP) PO SCH (22:35)
[2019-05-15] MEDS: THIAMINE HCL 100 MG TABLET (FP) PO SCH (22:35)
[2019-05-15] MEDS: LIDOCAINE PATCH REMOVAL MC SCH (23:04)
[2019-05-16] MEDS ORDERED: chlordiazePOXIDE HCL 10 MG CAPSULE PO ONE (05:00)
[2019-05-16] MEDS: METHOCARBAMOL 500 MG TABLET PO PRN (05:33)
[2019-05-16] MEDS: hydrOXYzine PAMOATE 25 MG CAPSULE (FP) PO PRN (05:33)
[2019-05-16] MEDS: ACETAMINOPHEN 325 MG TABLET (FP) PO PRN (05:34)
[2019-05-16 06:41] VITALS: BP 140/75; PULSE 74; TEMP 97.9
[2019-05-16] MEDS: CLOTRIMAZOLE 1% CREAM 15 GM TUBE TP SCH (08:49)
[2019-05-16] MEDS: PETROLATUM, WHITE 30 GM TUBE TP SCH (09:28)
[2019-05-16] MEDS: PANTOPRAZOLE 40 MG TABLET (FP) PO SCH (09:30)
[2019-05-16] MEDS: PRENATAL VITAMINS W/ FOLIC ACID TABLET (FP) PO SCH (09:30)
[2019-05-16] MEDS: IBUPROFEN 400 MG TABLET (FP) PO PRN (09:30)
[2019-05-16] MEDS: LIDOCAINE 5% TOPICAL PATCH TP SCH (09:31)
--- NOTE | 2019-05-16 09:42 | DS ---
[facility] Detox Discharge Summary Admission Date: 05/11/19 Discharge Date: 05/16/19 - History Present History: Alcohol Dependence, Opioid Dependence - Physical Exam Results Vital Signs: Vital Signs Temperature 97.9 F 05/16/19 06:00 Pulse Rate 74 05/16/19 06:00 Respiratory Rate 18 05/16/19 06:00 Blood Pressure 140/75 05/16/19 06:00 O2 Sat by Pulse Oximetry (%) Pertinent Admission Physical Exam Findings: pt arrived in withdrawals Vital Signs Temperature 97.9 F 05/16/19 06:00 Pulse Rate 74 05/16/19 06:00 Respiratory Rate 18 05/16/19 06:00 Blood Pressure 140/75 05/16/19 06:00 O2 Sat by Pulse Oximetry (%) Laboratory Tests 05/12/19 05/12/19 05/12/19 07:00 07:00 07:00 WBC 4.0 RBC 4.54 Hgb 14.6 Hct 42.3 MCV 93.3 MCH 32.1 MCHC 34.4 RDW 14.4 Plt Count 166 D MPV 8.5 D Sodium 137 Potassium 3.3 L Chloride 105 Carbon Dioxide 23 Anion Gap 10 BUN 16.9 Creatinine 1.0 Est GFR (CKD-EPI)AfAm 72.42 Est GFR (CKD-EPI)NonAf 62.49 Random Glucose 137 H Calcium 8.9 Total Bilirubin 1.6 H AST 29 ALT 32 Alkaline Phosphatase 84 Total Protein 7.2 Albumin 3.8 RPR Titer Nonreactive today pt is aaox3 ambulating no acute distress no s/s of withdrawals - Treatment Hospital Course: Detox Protocol Followed, Detoxed Safely, Responded well, Discharged Condition Good, Rehab Referral Accepted Patient has Accepted a Rehab Referral to: pt decline; referred to [facility] - Medication Discharge Medications: Ambulatory Orders Escitalopram Oxalate [Lexapro -] 5 mg PO DAILY 05/11/19 Hydroxyzine HCl 25 mg PO BID 05/11/19 Oxycodone HCl/Acetaminophen [Oxycodone-Acetaminophen 10-325] 1 each PO BID 05/11 Pregabalin [Lyrica -] 100 mg PO BID 05/11/19 Risperidone [Risperdal] 0.5 mg PO BID 05/11/19 Sennosides [Senna] 2 tab PO HS 05/11/19 traZODone HCL [Trazodone HCl] 200 mg PO HS 05/11/19 Ibuprofen [Motrin -] 800 mg PO Q8H PRN #20 tablet 05/15/19 Methocarbamol [Robaxin -] 500 mg PO Q6H PRN #30 tablet 05/15/19 - Diagnosis (1) Alcohol dependence, uncomplicated Current Visit: Yes Status: Chronic (2) MDD (major depressive disorder) Current Visit: Yes Status: Ruled-out (3) Bipolar disorder Current Visit: No Status: Acute (4) MDD (major depressive disorder) Current Visit: No Status: Acute (5) Opiate abuse, episodic Current Visit: No Status: Acute (6) Substance induced mood disorder Current Visit: No Status: Acute (7) Substance-induced anxiety disorder Current Visit: No Status: Acute (8) Substance-induced sleep disorder Current Visit: No Status: Acute (9) Degenerative disc disease Current Visit: No Status: Chronic (10) GERD (gastroesophageal reflux disease) Current Visit: No Status: Chronic Qualifiers: Esophagitis presence: without esophagitis Qualified Code(s): K21.9 - Gastro -esophageal reflux disease without esophagitis (11) Spondylosis Current Visit: No Status: Chronic (12) History of left hip replacement Current Visit: No Status: Resolved (13) MDD (major depressive disorder) Current Visit: No Status: Ruled-out - AMA Did Patient Leave Against Medical Advice: No
== END 2019-05-16 09:45 | disposition home or self-care (01) | DRG 897 ==
LOC: YASAS 11:48 → Y6N 15:15
PROVIDERS: ADMIT Allergy & Immunology; ATTEND Allergy & Immunology
PROC: HZ2ZZZZ Detoxification Services for Substance Abuse Treatment (ICD-10-PCS; principal; 2019-05-11)
DX: F10.230 Alcohol dependence with withdrawal, uncomplicated (principal); F19.280 Other psychoactive substance dependence with psychoactive substance-induced anxiety disorder; F19.282 Other psychoactive substance dependence with psychoactive substance-induced sleep disorder; F11.23 Opioid dependence with withdrawal; F19.24 Other psychoactive substance dependence with psychoactive substance-induced mood disorder; F31.9 Bipolar disorder, unspecified; F32.9 Major depressive disorder, single episode, unspecified; K21.9 Gastro-esophageal reflux disease without esophagitis; M47.9 Spondylosis, unspecified; M41.9 Scoliosis, unspecified; M54.89 Other dorsalgia; G89.29 Other chronic pain; Z96.642 Presence of left artificial hip joint; Z91.5 Personal history of self-harm
CPT/HCPCS: 36415; 80053; 85027; 86593

== ENCOUNTER 2020-08-13 09:15 | Inpatient (IN) | payer OTHER ==
[2020-08-13] MEDS ORDERED: BISMUTH SUBSALICYLATE 524 MG/30 ML UD PO PRN (12:32)
[2020-08-13] MEDS ORDERED: ONDANSETRON *ODT* 4 MG TABLET SL PRN (12:32)
[2020-08-13] MEDS ORDERED: ACETAMINOPHEN 325 MG TABLET (FP) PO PRN (12:32)
[2020-08-13] MEDS ORDERED: MAGNESIUM CITRATE 300 ML BOTTLE PO PRN (12:32)
[2020-08-13] MEDS ORDERED: MAGNESIUM HYDROX 2400MG/30ML ORAL SUSPENSION 30 ML CUP PO PRN (12:32)
[2020-08-13] MEDS ORDERED: LORazepam 1 MG TABLET PO PRN (12:32)
[2020-08-13] MEDS ORDERED: MENTHOL/PHENOL 1 EACH UD MM PRN (12:32)
[2020-08-13] MEDS ORDERED: MAG HYDROX/AL HYDROX/SIMETH 30 ML UNIT-DOSE CUP PO PRN (12:32)
[2020-08-13 12:57] VITALS: BMI 40.6
[2020-08-13] MEDS: hydrOXYzine PAMOATE 25 MG CAPSULE (FP) PO SCH ×3 (15:14→22:33)
[2020-08-13] MEDS: LIDOCAINE 5% TOPICAL PATCH TP SCH (15:17)
[2020-08-13] MEDS: ACETAMINOPHEN 325 MG TABLET (FP) PO PRN (15:17)
[2020-08-13] MEDS: LORazepam 2 MG TABLET PO SCH ×2 (17:43→22:33)
[2020-08-13] MEDS: THIAMINE HCL 100 MG TABLET (FP) PO SCH (22:33)
[2020-08-13] MEDS: LIDOCAINE PATCH REMOVAL MC SCH (22:33)
[2020-08-13] MEDS: MELATONIN 5 MG TABLETS PO SCH (22:33)
[2020-08-13] MEDS: QUEtiapine FUMARATE 50 MG TABLET PO SCH (22:33)
[2020-08-14 01:41] LABS: EPI CELLS 6 /uL (0-25.1); HYALINE CASTS 0 /uL (0-3.1); URINE APPEARANCE CLEAR; URINE BACTERIA 133 /uL (0-1359); URINE BILIRUBIN NEGATIVE (NEGATIVE); URINE COLOR YELLOW; URINE GLUCOSE (UA) NEGATIVE (NEGATIVE); URINE KETONE NEGATIVE (NEGATIVE); URINE LEUK ESTERASE 1+ (NEGATIVE); URINE NITRITE NEGATIVE (NEGATIVE); URINE PROTEIN NEGATIVE (NEGATIVE); URINE RBC 3 /uL (0-23.9); URINE UROBILINOGEN 0.2 mg/dL (0.2-1.0); URINE WBC 35 /uL (0-25.8)
[2020-08-14] MEDS: LORazepam 2 MG TABLET PO SCH ×4 (05:37→22:12)
[2020-08-14] MEDS: METHOCARBAMOL 500 MG TABLET PO PRN (05:38)
[2020-08-14] MEDS: hydrOXYzine PAMOATE 25 MG CAPSULE (FP) PO SCH ×5 (05:38→22:11)
[2020-08-14] MEDS: IBUPROFEN 400 MG TABLET (FP) PO PRN (05:38)
[2020-08-14] MEDS: PRENATAL VITAMINS W/ FOLIC ACID TABLET (FP) PO SCH (10:24)
[2020-08-14] MEDS: SERTRALINE HCL 50 MG TABLET (FP) PO SCH (10:24)
[2020-08-14] MEDS: LIDOCAINE 5% TOPICAL PATCH TP SCH (10:27)
[2020-08-14] MEDS: QUEtiapine FUMARATE 50 MG TABLET PO SCH (22:11)
[2020-08-14] MEDS: MELATONIN 5 MG TABLETS PO SCH (22:11)
[2020-08-14] MEDS: THIAMINE HCL 100 MG TABLET (FP) PO SCH (22:11)
[2020-08-14] MEDS: LIDOCAINE PATCH REMOVAL MC SCH (22:13)
[2020-08-15] MEDS: IBUPROFEN 400 MG TABLET (FP) PO PRN ×2 (01:49→22:04)
[2020-08-15] MEDS: hydrOXYzine PAMOATE 25 MG CAPSULE (FP) PO SCH ×2 (05:46→10:23)
[2020-08-15] MEDS: LORazepam 1 MG TABLET PO SCH ×4 (05:48→22:02)
[2020-08-15] MEDS: METHOCARBAMOL 500 MG TABLET PO PRN ×2 (05:48→17:38)
[2020-08-15] MEDS: LIDOCAINE 5% TOPICAL PATCH TP SCH (10:24)
[2020-08-15] MEDS: PRENATAL VITAMINS W/ FOLIC ACID TABLET (FP) PO SCH (10:24)
[2020-08-15] MEDS: ACETAMINOPHEN 325 MG TABLET (FP) PO PRN (10:24)
[2020-08-15] MEDS: SERTRALINE HCL 50 MG TABLET (FP) PO SCH (10:25)
[2020-08-15] MEDS: PANTOPRAZOLE 40 MG TABLET PO SCH (12:30)
[2020-08-15] MEDS ORDERED: SENNOSIDES 8.6MG TABLET (FP) PO PRN (15:48)
[2020-08-15] MEDS: hydrOXYzine PAMOATE 25 MG CAPSULE (FP) PO PRN (17:39)
[2020-08-15] MEDS: DOCUSATE SODIUM 100 MG CAPSULE (FP) PO SCH (22:02)
[2020-08-15] MEDS: QUEtiapine FUMARATE 50 MG TABLET PO SCH (22:03)
[2020-08-15] MEDS: THIAMINE HCL 100 MG TABLET (FP) PO SCH (22:03)
[2020-08-15] MEDS: MELATONIN 5 MG TABLETS PO SCH (22:03)
[2020-08-15] MEDS: LIDOCAINE PATCH REMOVAL MC SCH (22:05)
[2020-08-16] MEDS ORDERED: LORazepam 0.5 MG TABLET PO PRN
[2020-08-16] MEDS: LORazepam 0.5 MG TABLET PO SCH ×4 (06:07→22:27)
[2020-08-16] MEDS: METHOCARBAMOL 500 MG TABLET PO PRN ×3 (06:08→20:50)
[2020-08-16] MEDS: DOCUSATE SODIUM 100 MG CAPSULE (FP) PO SCH ×3 (06:08→22:26)
[2020-08-16] MEDS: ACETAMINOPHEN 325 MG TABLET (FP) PO PRN (06:09)
[2020-08-16] MEDS: PRENATAL VITAMINS W/ FOLIC ACID TABLET (FP) PO SCH (10:08)
[2020-08-16] MEDS: PANTOPRAZOLE 40 MG TABLET PO SCH (10:09)
[2020-08-16] MEDS: SERTRALINE HCL 50 MG TABLET (FP) PO SCH (10:09)
[2020-08-16] MEDS: hydrOXYzine PAMOATE 25 MG CAPSULE (FP) PO PRN ×3 (10:10→22:28)
[2020-08-16] MEDS: LIDOCAINE 5% TOPICAL PATCH TP SCH (10:11)
[2020-08-16 11:44] LABS: BASO % 0.8 % (0-2.0); EOS % 1.4 % (0-4.5); HEMATOCRIT 38.8 % (32.4-45.2); HEMOGLOBIN 13.1 GM/dL (10.7-15.3); LYMPH % 39.9 % (8-40); MCH 32.4 pg (25.7-33.7); MCHC 33.8 g/dl (32.0-36.0); MEAN CELL VOLUME 95.9 fl (80-96); MEAN PLT VOLUME 9.2 fl (7.5-11.1); MONO % 4.9 % (3.8-10.2); PLATELET COUNT 139 K/MM3 (134-434); RBC 4.05 M/mm3 (3.60-5.2); RDW 14.2 % (11.6-15.6); WHITE BLOOD COUNT 7.8 K/mm3 (4.0-10.0)
[2020-08-16 11:58] LABS: CALCIUM 8.9 mg/dL (8.5-10.1)
[2020-08-16 11:59] LABS: ALBUMIN 3.4 g/dl (3.4-5.0); BLOOD UREA NITROGEN 18.9 mg/dL (7-18)
[2020-08-16 12:01] LABS: BILIRUBIN,TOTAL 0.5 mg/dL (0.2-1); TOT PROT 6.8 g/dl (6.4-8.2)
[2020-08-16 12:02] LABS: CREATININE 0.8 mg/dL (0.55-1.3)
[2020-08-16 12:17] LABS: POTASSIUM 4.2 mmol/L (3.5-5.1)
[2020-08-16 13:17] LABS: PLATELET ESTIMATE DECREASED
[2020-08-16] MEDS: THIAMINE HCL 100 MG TABLET (FP) PO SCH (22:26)
[2020-08-16] MEDS: QUEtiapine FUMARATE 50 MG TABLET PO SCH (22:26)
[2020-08-16] MEDS: MELATONIN 5 MG TABLETS PO SCH (22:26)
[2020-08-16] MEDS: LIDOCAINE PATCH REMOVAL MC SCH (22:27)
[2020-08-17] MEDS ORDERED: LORazepam 0.5 MG TABLET PO ONE (05:00)
[2020-08-17] MEDS: IBUPROFEN 400 MG TABLET (FP) PO PRN ×3 (05:52→21:16)
[2020-08-17] MEDS: METHOCARBAMOL 500 MG TABLET PO PRN ×2 (05:52→17:50)
[2020-08-17] MEDS: DOCUSATE SODIUM 100 MG CAPSULE (FP) PO SCH ×3 (05:52→21:16)
[2020-08-17] MEDS: PRENATAL VITAMINS W/ FOLIC ACID TABLET (FP) PO SCH (09:40)
[2020-08-17] MEDS: PANTOPRAZOLE 40 MG TABLET PO SCH (09:41)
[2020-08-17] MEDS: SERTRALINE HCL 50 MG TABLET (FP) PO SCH (09:42)
[2020-08-17] MEDS: LIDOCAINE 5% TOPICAL PATCH TP SCH (09:42)
[2020-08-17] MEDS: hydrOXYzine PAMOATE 25 MG CAPSULE (FP) PO PRN ×3 (09:49→21:16)
[2020-08-17] MEDS: MELATONIN 5 MG TABLETS PO SCH (21:16)
[2020-08-17] MEDS: QUEtiapine FUMARATE 50 MG TABLET PO SCH (21:16)
[2020-08-17] MEDS: THIAMINE HCL 100 MG TABLET (FP) PO SCH (21:16)
[2020-08-17] MEDS: LIDOCAINE PATCH REMOVAL MC SCH (21:17)
[2020-08-18] MEDS: DOCUSATE SODIUM 100 MG CAPSULE (FP) PO SCH ×3 (06:16→21:12)
[2020-08-18] MEDS: METHOCARBAMOL 500 MG TABLET PO PRN ×3 (06:16→21:12)
[2020-08-18] MEDS: IBUPROFEN 400 MG TABLET (FP) PO PRN ×3 (08:11→19:38)
[2020-08-18] MEDS: SERTRALINE HCL 50 MG TABLET (FP) PO SCH (09:47)
[2020-08-18] MEDS: PANTOPRAZOLE 40 MG TABLET PO SCH (09:47)
[2020-08-18] MEDS: LIDOCAINE 5% TOPICAL PATCH TP SCH (09:47)
[2020-08-18] MEDS: PRENATAL VITAMINS W/ FOLIC ACID TABLET (FP) PO SCH (09:47)
[2020-08-18] MEDS: ACETAMINOPHEN 325 MG TABLET (FP) PO PRN (09:48)
[2020-08-18] MEDS: hydrOXYzine PAMOATE 25 MG CAPSULE (FP) PO PRN ×3 (09:50→21:12)
[2020-08-18] MEDS: HYDROCORTISONE 1% TOPICAL CREAM 30 GM TUBE TP PRN (14:33)
[2020-08-18] MEDS: MELATONIN 5 MG TABLETS PO SCH (21:12)
[2020-08-18] MEDS: QUEtiapine FUMARATE 50 MG TABLET PO SCH (21:12)
[2020-08-18] MEDS: LIDOCAINE PATCH REMOVAL MC SCH (21:12)
[2020-08-18] MEDS: THIAMINE HCL 100 MG TABLET (FP) PO SCH (21:12)
[2020-08-18] MEDS: GABAPENTIN 300 MG CAPSULE PO SCH (21:13)
[2020-08-19] MEDS: DOCUSATE SODIUM 100 MG CAPSULE (FP) PO SCH ×2 (06:41→13:45)
[2020-08-19] MEDS: GABAPENTIN 300 MG CAPSULE PO SCH ×2 (06:41→13:44)
[2020-08-19] MEDS: IBUPROFEN 400 MG TABLET (FP) PO PRN ×2 (06:42→16:43)
[2020-08-19] MEDS: hydrOXYzine PAMOATE 25 MG CAPSULE (FP) PO PRN ×2 (09:35→16:43)
[2020-08-19] MEDS: METHOCARBAMOL 500 MG TABLET PO PRN ×2 (09:35→21:13)
[2020-08-19] MEDS: PANTOPRAZOLE 40 MG TABLET PO SCH (09:35)
[2020-08-19] MEDS: SERTRALINE HCL 50 MG TABLET (FP) PO SCH (09:35)
[2020-08-19] MEDS: LIDOCAINE 5% TOPICAL PATCH TP SCH (09:36)
[2020-08-19] MEDS: PRENATAL VITAMINS W/ FOLIC ACID TABLET (FP) PO SCH (09:37)
[2020-08-19] MEDS: ACETAMINOPHEN 325 MG TABLET (FP) PO PRN (13:47)
[2020-08-19] MEDS ORDERED: LOPERAMIDE HCL 2 MG CAPSULE PO ONE (18:30)
[2020-08-19] MEDS: GABAPENTIN 100 MG CAPSULE PO SCH (21:13)
[2020-08-19] MEDS: QUEtiapine FUMARATE 50 MG TABLET PO SCH (21:13)
[2020-08-19] MEDS: THIAMINE HCL 100 MG TABLET (FP) PO SCH (21:13)
[2020-08-19] MEDS: LIDOCAINE PATCH REMOVAL MC SCH (21:13)
[2020-08-19] MEDS: MELATONIN 5 MG TABLETS PO SCH (21:13)
[2020-08-20] MEDS: hydrOXYzine PAMOATE 25 MG CAPSULE (FP) PO PRN ×2 (06:41→17:33)
[2020-08-20] MEDS: GABAPENTIN 100 MG CAPSULE PO SCH ×3 (06:41→21:02)
[2020-08-20] MEDS: IBUPROFEN 400 MG TABLET (FP) PO PRN ×2 (06:41→14:53)
[2020-08-20] MEDS: SERTRALINE HCL 50 MG TABLET (FP) PO SCH (09:52)
[2020-08-20] MEDS: PANTOPRAZOLE 40 MG TABLET PO SCH (09:52)
[2020-08-20] MEDS: PRENATAL VITAMINS W/ FOLIC ACID TABLET (FP) PO SCH (09:52)
[2020-08-20] MEDS: LIDOCAINE 5% TOPICAL PATCH TP SCH (09:54)
[2020-08-20] MEDS: METHOCARBAMOL 500 MG TABLET PO PRN ×2 (10:53→17:33)
[2020-08-20] MEDS: THIAMINE HCL 100 MG TABLET (FP) PO SCH (21:02)
[2020-08-20] MEDS: QUEtiapine FUMARATE 50 MG TABLET PO SCH (21:02)
[2020-08-20] MEDS: MELATONIN 5 MG TABLETS PO SCH (21:02)
[2020-08-20] MEDS: LIDOCAINE PATCH REMOVAL MC SCH (21:03)
[2020-08-20] MEDS: ACETAMINOPHEN 325 MG TABLET (FP) PO PRN (21:04)
[2020-08-21] MEDS: GABAPENTIN 100 MG CAPSULE PO SCH ×3 (06:32→21:09)
[2020-08-21] MEDS: IBUPROFEN 400 MG TABLET (FP) PO PRN ×2 (06:32→13:46)
[2020-08-21] MEDS: hydrOXYzine PAMOATE 25 MG CAPSULE (FP) PO PRN ×2 (06:32→21:09)
[2020-08-21] MEDS ORDERED: PT OWN MED DRAWER 7, Y5N ONE ×2 (09:08→15:57)
[2020-08-21] MEDS: HYDROCORTISONE 1% TOPICAL CREAM 30 GM TUBE TP PRN (09:39)
[2020-08-21] MEDS: PRENATAL VITAMINS W/ FOLIC ACID TABLET (FP) PO SCH (09:39)
[2020-08-21] MEDS: LIDOCAINE 5% TOPICAL PATCH TP SCH (09:40)
[2020-08-21] MEDS: PANTOPRAZOLE 40 MG TABLET PO SCH (09:40)
[2020-08-21] MEDS: SERTRALINE HCL 25 MG TABLET (FP) PO SCH (09:40)
[2020-08-21] MEDS: METHOCARBAMOL 500 MG TABLET PO PRN ×2 (09:40→21:09)
[2020-08-21] MEDS ORDERED: DOCUSATE SODIUM 100 MG CAPSULE (FP) PO SCH (13:00)
[2020-08-21 15:31] LABS: EPI CELLS 4 /uL (0-25.1); HYALINE CASTS 0 /uL (0-3.1); URINE APPEARANCE Error; URINE BACTERIA 158 /uL (0-1359); URINE BILIRUBIN NEGATIVE (NEGATIVE); URINE COLOR YELLOW; URINE GLUCOSE (UA) NEGATIVE (NEGATIVE); URINE KETONE NEGATIVE (NEGATIVE); URINE LEUK ESTERASE NEGATIVE (NEGATIVE); URINE NITRITE NEGATIVE (NEGATIVE); URINE PROTEIN NEGATIVE (NEGATIVE); URINE RBC 2 /uL (0-23.9); URINE UROBILINOGEN 0.2 mg/dL (0.2-1.0); URINE WBC 5 /uL (0-25.8)
[2020-08-21] MEDS: MELATONIN 5 MG TABLETS PO SCH (21:09)
[2020-08-21] MEDS: LIDOCAINE PATCH REMOVAL MC SCH (21:09)
[2020-08-21] MEDS: THIAMINE HCL 100 MG TABLET (FP) PO SCH (21:09)
[2020-08-21] MEDS: QUEtiapine FUMARATE 50 MG TABLET PO SCH (21:09)
[2020-08-21] MEDS ORDERED: SACCHAROMYCES BOULARDII 250 MG PO SCH (22:00)
[2020-08-22] MEDS ORDERED: PT OWN MED DRAWER 7, Y5N ONE ×3 (03:18→10:12)
[2020-08-22] MEDS: GABAPENTIN 100 MG CAPSULE PO SCH ×3 (06:33→21:06)
[2020-08-22] MEDS: METHOCARBAMOL 500 MG TABLET PO PRN ×2 (06:35→14:15)
[2020-08-22] MEDS: ACETAMINOPHEN 325 MG TABLET (FP) PO PRN (06:36)
[2020-08-22] MEDS: PRENATAL VITAMINS W/ FOLIC ACID TABLET (FP) PO SCH (09:44)
[2020-08-22] MEDS: SENNOSIDES 8.6MG TABLET (FP) PO PRN (09:44)
[2020-08-22] MEDS: PANTOPRAZOLE 40 MG TABLET PO SCH (09:44)
[2020-08-22] MEDS: SERTRALINE HCL 25 MG TABLET (FP) PO SCH (09:44)
[2020-08-22] MEDS: HYDROCORTISONE 1% TOPICAL CREAM 30 GM TUBE TP PRN (09:45)
[2020-08-22] MEDS: LIDOCAINE 5% TOPICAL PATCH TP SCH (09:45)
[2020-08-22] MEDS: IBUPROFEN 400 MG TABLET (FP) PO PRN ×2 (09:47→21:08)
[2020-08-22] MEDS: QUEtiapine FUMARATE 50 MG TABLET PO SCH (21:06)
[2020-08-22] MEDS: THIAMINE HCL 100 MG TABLET (FP) PO SCH (21:06)
[2020-08-22] MEDS: MELATONIN 5 MG TABLETS PO SCH (21:06)
[2020-08-22] MEDS: LIDOCAINE PATCH REMOVAL MC SCH (21:07)
[2020-08-23] MEDS: hydrOXYzine PAMOATE 25 MG CAPSULE (FP) PO PRN ×2 (06:39→21:05)
[2020-08-23] MEDS: GABAPENTIN 100 MG CAPSULE PO SCH ×3 (06:39→21:05)
[2020-08-23] MEDS: IBUPROFEN 400 MG TABLET (FP) PO PRN (06:39)
[2020-08-23] MEDS: LIDOCAINE 5% TOPICAL PATCH TP SCH (09:47)
[2020-08-23] MEDS: PANTOPRAZOLE 40 MG TABLET PO SCH (09:47)
[2020-08-23] MEDS: PRENATAL VITAMINS W/ FOLIC ACID TABLET (FP) PO SCH (09:48)
[2020-08-23] MEDS: SERTRALINE HCL 25 MG TABLET (FP) PO SCH (09:48)
[2020-08-23] MEDS: METHOCARBAMOL 500 MG TABLET PO PRN ×2 (09:49→21:05)
[2020-08-23] MEDS: SENNOSIDES 8.6MG TABLET (FP) PO PRN (09:49)
[2020-08-23] MEDS: ACETAMINOPHEN 325 MG TABLET (FP) PO PRN (14:19)
[2020-08-23] MEDS ORDERED: PT OWN MED DRAWER 7, Y5N ONE (21:03)
[2020-08-23] MEDS: MELATONIN 5 MG TABLETS PO SCH (21:05)
[2020-08-23] MEDS: THIAMINE HCL 100 MG TABLET (FP) PO SCH (21:05)
[2020-08-23] MEDS: QUEtiapine FUMARATE 50 MG TABLET PO SCH (21:05)
[2020-08-23] MEDS: LIDOCAINE PATCH REMOVAL MC SCH (21:06)
[2020-08-24] MEDS: GABAPENTIN 100 MG CAPSULE PO SCH ×3 (06:35→21:09)
[2020-08-24] MEDS: METHOCARBAMOL 500 MG TABLET PO PRN ×3 (06:35→21:10)
[2020-08-24] MEDS ORDERED: PT OWN MED DRAWER 7, Y5N ONE ×2 (08:53→21:03)
[2020-08-24] MEDS: PANTOPRAZOLE 40 MG TABLET PO SCH (09:51)
[2020-08-24] MEDS: SENNOSIDES 8.6MG TABLET (FP) PO PRN (09:51)
[2020-08-24] MEDS: SERTRALINE HCL 25 MG TABLET (FP) PO SCH (09:51)
[2020-08-24] MEDS: PRENATAL VITAMINS W/ FOLIC ACID TABLET (FP) PO SCH (09:51)
[2020-08-24] MEDS: LIDOCAINE 5% TOPICAL PATCH TP SCH (09:52)
[2020-08-24] MEDS: IBUPROFEN 400 MG TABLET (FP) PO PRN (09:53)
[2020-08-24] MEDS: ACETAMINOPHEN 325 MG TABLET (FP) PO PRN (13:59)
[2020-08-24] MEDS: MELATONIN 5 MG TABLETS PO SCH (21:09)
[2020-08-24] MEDS: THIAMINE HCL 100 MG TABLET (FP) PO SCH (21:09)
[2020-08-24] MEDS: QUEtiapine FUMARATE 50 MG TABLET PO SCH (21:09)
[2020-08-24] MEDS: LIDOCAINE PATCH REMOVAL MC SCH (21:10)
[2020-08-24] MEDS: hydrOXYzine PAMOATE 25 MG CAPSULE (FP) PO PRN (21:10)
[2020-08-25] MEDS: METHOCARBAMOL 500 MG TABLET PO PRN ×2 (06:38→21:10)
[2020-08-25] MEDS: GABAPENTIN 100 MG CAPSULE PO SCH ×3 (06:38→21:11)
[2020-08-25] MEDS: LIDOCAINE 5% TOPICAL PATCH TP SCH (09:54)
[2020-08-25] MEDS: SERTRALINE HCL 25 MG TABLET (FP) PO SCH (09:54)
[2020-08-25] MEDS: IBUPROFEN 400 MG TABLET (FP) PO PRN (09:54)
[2020-08-25] MEDS: PRENATAL VITAMINS W/ FOLIC ACID TABLET (FP) PO SCH (09:54)
[2020-08-25] MEDS: PANTOPRAZOLE 40 MG TABLET PO SCH (09:54)
[2020-08-25] MEDS: hydrOXYzine PAMOATE 25 MG CAPSULE (FP) PO PRN ×2 (15:22→21:11)
[2020-08-25] MEDS: ACETAMINOPHEN 325 MG TABLET (FP) PO PRN (15:22)
[2020-08-25] MEDS: MELATONIN 5 MG TABLETS PO SCH (21:10)
[2020-08-25] MEDS: SENNOSIDES 8.6MG TABLET (FP) PO PRN (21:10)
[2020-08-25] MEDS: LIDOCAINE PATCH REMOVAL MC SCH (21:10)
[2020-08-25] MEDS: THIAMINE HCL 100 MG TABLET (FP) PO SCH (21:11)
[2020-08-25] MEDS: QUEtiapine FUMARATE 50 MG TABLET PO SCH (21:11)
[2020-08-26] MEDS: GABAPENTIN 100 MG CAPSULE PO SCH ×3 (06:38→22:05)
[2020-08-26] MEDS: METHOCARBAMOL 500 MG TABLET PO PRN ×3 (06:39→22:07)
[2020-08-26] MEDS: hydrOXYzine PAMOATE 25 MG CAPSULE (FP) PO PRN ×3 (06:39→22:04)
[2020-08-26] MEDS: PRENATAL VITAMINS W/ FOLIC ACID TABLET (FP) PO SCH (10:50)
[2020-08-26] MEDS: SERTRALINE HCL 25 MG TABLET (FP) PO SCH (10:51)
[2020-08-26] MEDS: PANTOPRAZOLE 40 MG TABLET PO SCH (10:51)
[2020-08-26] MEDS: LIDOCAINE 5% TOPICAL PATCH TP SCH (10:51)
[2020-08-26] MEDS: IBUPROFEN 400 MG TABLET (FP) PO PRN (10:51)
[2020-08-26] MEDS: LIDOCAINE PATCH REMOVAL MC SCH (22:04)
[2020-08-26] MEDS: MELATONIN 5 MG TABLETS PO SCH (22:05)
[2020-08-26] MEDS: THIAMINE HCL 100 MG TABLET (FP) PO SCH (22:05)
[2020-08-26] MEDS: traZODone HCL 50 MG TABLET (FP) PO SCH (22:06)
[2020-08-27] MEDS: GABAPENTIN 100 MG CAPSULE PO SCH ×3 (06:04→21:17)
[2020-08-27] MEDS: METHOCARBAMOL 500 MG TABLET PO PRN ×3 (06:04→21:17)
[2020-08-27] MEDS: PANTOPRAZOLE 40 MG TABLET PO SCH (11:00)
[2020-08-27] MEDS: LIDOCAINE 5% TOPICAL PATCH TP SCH (11:00)
[2020-08-27] MEDS: SERTRALINE HCL 25 MG TABLET (FP) PO SCH (11:00)
[2020-08-27] MEDS: IBUPROFEN 400 MG TABLET (FP) PO PRN (11:02)
[2020-08-27] MEDS: hydrOXYzine PAMOATE 25 MG CAPSULE (FP) PO PRN ×2 (11:02→21:17)
[2020-08-27] MEDS: PRENATAL VITAMINS W/ FOLIC ACID TABLET (FP) PO SCH (11:05)
[2020-08-27] MEDS: SENNOSIDES 8.6MG TABLET (FP) PO PRN (14:14)
[2020-08-27] MEDS: ACETAMINOPHEN 325 MG TABLET (FP) PO PRN (14:14)
[2020-08-27] MEDS: traZODone HCL 50 MG TABLET (FP) PO SCH (21:17)
[2020-08-27] MEDS: MELATONIN 5 MG TABLETS PO SCH (21:17)
[2020-08-27] MEDS: THIAMINE HCL 100 MG TABLET (FP) PO SCH (21:17)
[2020-08-27] MEDS: LIDOCAINE PATCH REMOVAL MC SCH (22:25)
[2020-08-28] MEDS: GABAPENTIN 100 MG CAPSULE PO SCH ×3 (06:12→21:56)
[2020-08-28] MEDS: METHOCARBAMOL 500 MG TABLET PO PRN ×2 (06:12→21:56)
[2020-08-28] MEDS: SENNOSIDES 8.6MG TABLET (FP) PO PRN ×2 (06:13→21:55)
[2020-08-28] MEDS ORDERED: PT OWN MED DRAWER 7, Y5N ONE (06:13)
[2020-08-28] MEDS: LIDOCAINE 5% TOPICAL PATCH TP SCH (11:09)
[2020-08-28] MEDS: PANTOPRAZOLE 40 MG TABLET PO SCH (11:09)
[2020-08-28] MEDS: PRENATAL VITAMINS W/ FOLIC ACID TABLET (FP) PO SCH (11:09)
[2020-08-28] MEDS: SERTRALINE HCL 25 MG TABLET (FP) PO SCH (11:10)
[2020-08-28] MEDS: hydrOXYzine PAMOATE 25 MG CAPSULE (FP) PO PRN ×2 (11:11→21:56)
[2020-08-28] MEDS: IBUPROFEN 400 MG TABLET (FP) PO PRN (11:11)
[2020-08-28] MEDS: DOCUSATE SODIUM 100 MG CAPSULE (FP) PO SCH ×2 (14:31→21:56)
[2020-08-28] MEDS: MELATONIN 5 MG TABLETS PO SCH (21:55)
[2020-08-28] MEDS: THIAMINE HCL 100 MG TABLET (FP) PO SCH (21:56)
[2020-08-28] MEDS: traZODone HCL 50 MG TABLET (FP) PO SCH (21:56)
[2020-08-28] MEDS: LIDOCAINE PATCH REMOVAL MC SCH (22:03)
[2020-08-29] MEDS: DOCUSATE SODIUM 100 MG CAPSULE (FP) PO SCH ×3 (06:15→21:18)
[2020-08-29] MEDS: METHOCARBAMOL 500 MG TABLET PO PRN ×2 (06:15→21:18)
[2020-08-29] MEDS: GABAPENTIN 100 MG CAPSULE PO SCH ×3 (06:15→21:18)
[2020-08-29] MEDS: LIDOCAINE 5% TOPICAL PATCH TP SCH (10:52)
[2020-08-29] MEDS: PRENATAL VITAMINS W/ FOLIC ACID TABLET (FP) PO SCH (10:52)
[2020-08-29] MEDS: PANTOPRAZOLE 40 MG TABLET PO SCH (10:53)
[2020-08-29] MEDS: hydrOXYzine PAMOATE 25 MG CAPSULE (FP) PO PRN ×2 (10:53→21:18)
[2020-08-29] MEDS: IBUPROFEN 400 MG TABLET (FP) PO PRN (10:54)
[2020-08-29] MEDS: SERTRALINE HCL 25 MG TABLET (FP) PO SCH (10:54)
[2020-08-29] MEDS: ACETAMINOPHEN 325 MG TABLET (FP) PO PRN (14:36)
[2020-08-29] MEDS: SENNOSIDES 8.6MG TABLET (FP) PO PRN (21:18)
[2020-08-29] MEDS: MELATONIN 5 MG TABLETS PO SCH (21:18)
[2020-08-29] MEDS: THIAMINE HCL 100 MG TABLET (FP) PO SCH (21:18)
[2020-08-29] MEDS: traZODone HCL 50 MG TABLET (FP) PO SCH (21:18)
[2020-08-29] MEDS: HYDROCORTISONE 1% TOPICAL CREAM 30 GM TUBE TP PRN (21:21)
[2020-08-29] MEDS: LIDOCAINE PATCH REMOVAL MC SCH (22:11)
[2020-08-30] MEDS: hydrOXYzine PAMOATE 25 MG CAPSULE (FP) PO PRN (06:11)
[2020-08-30] MEDS: METHOCARBAMOL 500 MG TABLET PO PRN (06:11)
[2020-08-30] MEDS: GABAPENTIN 100 MG CAPSULE PO SCH (06:11)
[2020-08-30] MEDS: DOCUSATE SODIUM 100 MG CAPSULE (FP) PO SCH (06:11)
[2020-08-30 07:30] VITALS: BP 122/68; PULSE 67; TEMP 97.7
[2020-08-30] MEDS: PRENATAL VITAMINS W/ FOLIC ACID TABLET (FP) PO SCH (10:16)
[2020-08-30] MEDS: LIDOCAINE 5% TOPICAL PATCH TP SCH (10:17)
[2020-08-30] MEDS: SERTRALINE HCL 25 MG TABLET (FP) PO SCH (10:17)
[2020-08-30] MEDS: PANTOPRAZOLE 40 MG TABLET PO SCH (10:18)
== END 2020-08-30 12:35 | disposition home or self-care (01) | DRG 895 ==
LOC: YASAS 09:15 → Y6N 13:35 → Y3N 14:27 → Y3E 08-17 15:39 → Y5N 08-25 14:58
PROVIDERS: ADMIT Allergy & Immunology; ATTEND Allergy & Immunology
PROC: HZ42ZZZ Group Counseling for Substance Abuse Treatment, Cognitive-Behavioral (ICD-10-PCS; principal; 2020-08-13)
DX: F10.20 Alcohol dependence, uncomplicated (principal); Z68.41 Body mass index [BMI] 40.0-44.9, adult; F10.280 Alcohol dependence with alcohol-induced anxiety disorder; F32.9 Major depressive disorder, single episode, unspecified; K21.9 Gastro-esophageal reflux disease without esophagitis; L74.0 Miliaria rubra; M50.320 Other cervical disc degeneration, mid-cervical region, unspecified level; M41.9 Scoliosis, unspecified; M47.9 Spondylosis, unspecified; M54.89 Other dorsalgia; E66.01 Morbid (severe) obesity due to excess calories; Z96.642 Presence of left artificial hip joint; Z99.89 Dependence on other enabling machines and devices
CPT/HCPCS: 36415; 80053; 81003; 85025; 86780; C9803; U0003